=== PATIENT | male | born 1945 | race Caucasian/White ===

== ENCOUNTER 2016-12-31 06:25 | Day surgery (SDC) | payer MEDICARE, OTHER ==
[~2016-12-31 06:25] MED LIST: FENTANYL 250 MCG/5 ML AMP IV PRN; IV START KIT ONE; LACTATED RINGERS 1,000 ML ONE; LIDOCAINE Viscous 2% 15 ML UDCUP PO PRN; MIDAZOLAM HCL 5 MG/5 ML VIAL IV PRN
[2016-12-31] MEDS ORDERED: LACTATED RINGERS 1,000 ML IV SCH (06:30)
[2016-12-31] MEDS ORDERED: FENTANYL 100 MCG/2 ML VIAL ONE (06:47)
[2016-12-31] MEDS ORDERED: MIDAZOLAM HCL 5 MG/5 ML VIAL ONE (06:47)
[2016-12-31] MEDS ORDERED: LIDOCAINE Viscous 2% 15 ML UDCUP ONE (06:48)
[2016-12-31 11:42] LABS: HELICOBACTER PYLORII DETECTION NEGATIVE (NEGATIVE)
--- NOTE | 2017-01-04 14:43 | SURGPATH ---
[facility] [address] [place] [id number] Patient Name: JOSEFA DOAN MR#: [id number] : 1945 Gender: M Specimen #: [id number] Collected: 12/31/2016 Received: 01/01/2017 Reported: 01/04/2017 Submitting Phys: YVETTE ACUNA Copy To Phys: RAHEL DOWLING [facility] Clinical History / Pre-Operative Diagnosis: DYSPHAGIA; RULE OUT GASTRITIS AND ESOPHAGITIS Specimen Source / Surgical Procedure Performed: #1-ANTRAL; #2-ESOPHAGUS AT 36 CM Interpretation: 1. GASTRIC ANTRUM, BIOPSY: - MILD CHRONIC GASTRITIS. - NO MICROORGANISMS IDENTIFIED WITH ROUTINE STAINING. - NO EVIDENCE OF ACUTE INFLAMMATION, INTESTINAL METAPLASIA, OR MALIGNANCY. 2. ESOPHAGUS, 36 CM, BIOPSY: - SQUAMOUS MUCOSA SHOWING FOCAL ULCERATION AND MILD ACUTE AND CHRONIC INFLAMMATION. - NO EVIDENCE OF FUNGAL ORGANISMS WITH A PAS STAIN. - NO EVIDENCE OF INTESTINAL METAPLASIA OR MALIGNANCY. Electronically Signed Out Rahat Mckeon M.D., Ph.D. Gross Description: #1 The specimen is received in a formalin filled container labeled with the patient's name and "antral". Two ortega biopsies are 0.3 and 0.5 cm. Totally embedded in cassette #1. #2 The specimen is received in a formalin filled container labeled with the patient's name and "esophagus at 36 cm". Three phipps biopsies are 0.1, 0.1 and 0.3 cm. Totally embedded in cassette #2. Jennifer Posey Microscopic Description: 1. Examination of multiple levels from the gastric antrum biopsy shows two fragments of gastric mucosa with expansion of lamina propria by a mixed inflammatory cell infiltrate consisting of lymphocytes, plasma cells, and occasional eosinophils. No neutrophils are seen. No microorganisms identified with routine staining. There is no evidence of intestinal metaplasia or malignancy. 2. Examination of multiple levels from the esophagus biopsy at 36 cm shows squamous mucosa with focal ulceration and a mild acute and chronic inflammatory cell infiltrate. No fungal organisms are identified with a PAS stain. There is no evidence of intestinal metaplasia or malignancy. 1: 20546 2: 12851, 81853 K29.50 K20.9
== END 2016-12-31 08:50 | disposition home or self-care (01) ==
LOC: SDC 06:25
PROVIDERS: ATTEND Internal Medicine Gastroenterology
PROC: 0D748ZZ Dilation of Esophagogastric Junction, Via Natural or Artificial Opening Endoscopic (ICD-10-PCS; principal; 2016-12-31)
PROC: 0DB98ZX Excision of Duodenum, Via Natural or Artificial Opening Endoscopic, Diagnostic (ICD-10-PCS; 2016-12-31)
PROC: 0DB68ZX Excision of Stomach, Via Natural or Artificial Opening Endoscopic, Diagnostic (ICD-10-PCS; 2016-12-31)
DX: K22.2 Esophageal obstruction (principal); K21.0 Gastro-esophageal reflux disease with esophagitis; K29.50 Unspecified chronic gastritis without bleeding; K29.80 Duodenitis without bleeding; Z88.2 Allergy status to sulfonamides